=== PATIENT | female | born 1985 | race Caucasian/White ===

== ENCOUNTER → 2020-10-30 | Outpatient (CLI) | payer BC ==
[2020-10-30 12:56] LABS: HEMOGLOBIN 13.8 gm/dl (12.3-15.3); RED BLOOD COUNT 4.74 M/UL (4.00-5.10); WHITE BLOOD COUNT 7.1 K/UL (4.5-11.0)
[2020-10-30 13:17] LABS: BUN/CREATININE RATIO 16 (0-10)
[2020-10-31 09:15] LABS: VITAMIN D, 25-HYDROXY 39.3 ng/mL (30.0-100.0)
== END ==
LOC: LAB 10:52
PROVIDERS: Internal Medicine
DX: D89.89 Other specified disorders involving the immune mechanism, not elsewhere classified (principal); R76.8 Other specified abnormal immunological findings in serum; M25.50 Pain in unspecified joint
CPT/HCPCS: 36415; 80053; 85025; 86160